=== PATIENT | female | born 1935 | race Caucasian/White ===

== ENCOUNTER 2017-05-31 16:17 | Outpatient (CLI) | payer MEDICARE | END 2017-05-31 16:18 | disposition critical access hospital (66) | LOC: EMS 16:17 | PROVIDERS: ATTEND Surgery | DX: R46.4 Slowness and poor responsiveness (principal); M54.9 Dorsalgia, unspecified | CPT/HCPCS: A0425; A0429 ==

== ENCOUNTER 2017-05-31 16:46 | Emergency (ER) | payer MEDICARE ==
--- NOTE | 2017-05-31 18:43 | ED Physician Documentation ---
PD HPI ALTERED MENTAL STATUS - Stated complaint Stated Complaint: ALOC - Chief complaint Chief Complaint: Neuro - History obtained from History obtained from: Patient, Family, EMS - History of Present Illness Timing - onset: Today (Patient was very drowsy and hard to rouse while lying in bed. No noted change in med dosing and daughter gives her her meds at home. She was not easily rousable and EMS called. Patient says she awoke when Medics were there and she has been alert/awake enroute and here. She denies headache, chest pain. Has had ongoing pain in mid back to left side, with feeling it hurting more today. She has been on same pain meds for a week or so. She has had the back pain for about a month, with apparent atraumatic T6 compression fracture. She has been having less mobility due to it and had a fall 1 week ago with skin tears of arms due to difficulty getting to bathroom. 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 No: Fever, Headache, Dyspnea, NVD , Urinary sx, Focal weakness Contributing factors: Anticoagulated, Recent injury (about a month ago, with back pain). No: Recent med change, Recent illness Basline status: Alert and oriented X 3 Recently seen: Emergency Dept Review of Systems Constitutional: denies: Fever, Chills Nose: denies: Rhinorrhea / runny nose, Congestion Throat: denies: Sore throat Cardiac: denies: Chest pain / pressure, Palpitations Respiratory: reports: Dyspnea, Wheezing. denies: Cough GI: reports: Nausea. denies: Abdominal Pain, Vomiting, Diarrhea Neurologic: denies: Focal weakness, Numbness Endocrine: reports: Weight loss. denies: Easy bruising / bleeding Immunocompromised: denies: Immunocompromised PD PAST MEDICAL HISTORY - Past Medical History Cardiovascular: Congestive heart failure, Hypertension, Atrial fibrillation Respiratory: Asthma, Shortness of breath Neuro: None Endocrine/Autoimmune: HyPOthyroidism GI: None EXCEL SPECIALIST: None : None HEENT: None Psych: None Musculoskeletal: Osteoarthritis Derm: None - Past Surgical History Past Surgical History: Yes General: Bowel surgery, Colonoscopy /EXCEL SPECIALIST: Dilation and currettage HEENT: Cataracts - Present Medications Home Medications: Ambulatory Orders Medication Instructions Recorded Confirmed Levothyroxine [Synthroid] 50 mcg PO MOTUTHFRSA 02/12/13 05/24/17 traZODone [Desyrel] 100 mg PO QPM 07/14/14 05/24/17 Fluticasone [Flonase] 1 spray BRAYDON BID 03/05/15 05/24/17 Potassium Chloride 20 meq PO DAILY 03/05/15 05/24/17 Albuterol Sulfate [Proair Hfa] 2 puffs INH Q4H PRN 01/04/16 05/24/17 Atorvastatin Calcium 60 mg PO QPM 01/04/16 05/24/17 Azelastine HCl [Astelin] 1 - 2 sprays NS BID PRN 01/04/16 05/24/17 Furosemide [Lasix] 40 mg PO DAILY 01/04/16 05/24/17 Mometasone/Formoterol [Dulera 200 2 puffs INH BID 01/04/16 05/24/17 Mcg/5 Mcg Inhaler] oxyCODONE [Roxicodone] 5 mg PO DAILY PRN 01/04/16 05/24/17 Omeprazole 20 mg BID 03/24/16 05/24/17 Warfarin [Coumadin] 5 mg QPM 03/24/16 05/24/17 Cetirizine [ZyrTEC] 10 mg PO ONCE 11/17/16 05/24/17 Glucosamine/D3/Boswellia [place] 1 each PO DAILY 11/17/16 05/24/17 [Osteo Bi-Flex Tablet] Vitamin B Complex 1 each PO DAILY 11/17/16 05/24/17 Metoprolol Tartrate 5 mg PO DAILY 03/13/17 05/24/17 Oxycodone HCl 10 mg PO Q4H PRN #20 tablet 05/02/17 05/24/17 Fentanyl [Fentanyl 12mcg patch] 2 each TD 05/31/17 oxyCODONE ER [OxyCONTIN] 20 mg PO Q12H 05/31/17 05/31/17 - Allergies Allergies/Adverse Reactions: Allergies Allergy/AdvReac Type Severity Reaction Status Date / Time acetaminophen [From Percocet] Allergy Unknown Verified 05/31/17 16:52 aloe vera [From Vagisil] Allergy Unknown Verified 05/31/17 16:52 amitriptyline Allergy Unknown Verified 05/31/17 16:52 amoxicillin trihydrate * Allergy Respiratory Verified 05/31/17 16:52 [From Augmentin] benzocaine [From Vagisil] Allergy Unknown Verified 05/31/17 16:52 ipratropium Allergy Unknown Verified 05/31/17 16:52 medroxyprogesterone acetate * Allergy Unknown Verified 05/31/17 16:52 [From Provera] meperidine HCl * Allergy Unknown Verified 05/31/17 16:52 [From Demerol] mineral oil * [From Vagisil] Allergy Unknown Verified 05/31/17 16:52 morphine Allergy Emesis Verified 05/31/17 16:52 nortriptyline Allergy Unknown Verified 05/31/17 16:52 oxycodone HCl * Allergy Unknown Verified 05/31/17 16:52 [From Percocet] Penicillins Allergy Unknown Verified 05/31/17 16:52 potassium clavulanate * Allergy Respiratory Verified 05/31/17 16:52 [From Augmentin] promethazine HCl * Allergy Unknown Verified 05/31/17 16:52 [From Phenergan] resorcinol [From Vagisil] Allergy Unknown Verified 05/31/17 16:52 starch [From Vagisil] Allergy Unknown Verified 05/31/17 16:52 Sulfa (Sulfonamide Allergy Nausea Verified 05/31/17 16:52 Antibiotics) sulfamethoxazole Allergy Unknown Verified 05/31/17 16:52 [From Bactrim] tiotropium bromide * Allergy Unknown Verified 05/31/17 16:52 [From Spiriva with HandiHaler] trimethoprim [From Bactrim] Allergy Unknown Verified 05/31/17 16:52 vitamin E acetate * Allergy Unknown Verified 05/31/17 16:52 [From Vagisil] vitamins A and D * Allergy Unknown Verified 05/31/17 16:52 [From Vagisil] erythromycin base AdvReac Unknown Verified 05/31/17 16:52 BIND Allergy Intermediate Emesis Uncoded 05/31/17 16:52 - Social History Does the pt smoke?: No Smoking Status: Never smoker Does the pt drink ETOH?: No Does the pt have substance abuse?: No - Immunizations Immunizations are current?: Yes Immunizations: TDAP current <10years - POLST Patient has POLST: No PD ED PE NORMAL - Vitals Vital signs reviewed: Yes - General General: Alert and oriented X 3, Well developed/nourished, Other (appears in pain with movement of the upper back. ) - HEENT HEENT: Atraumatic, Pharynx benign. No: Moist mucous membranes - Neck Neck: Supple, no meningeal sign, No adenopathy - Cardiac Cardiac: RRR, No murmur - Respiratory Respiratory: Clear bilaterally, Other - Abdomen Abdomen: Normal bowel sounds, Soft, Non tender, Non distended - Female Female : Deferred - Rectal Rectal: Deferred - Back Back: No CVA TTP, Other (mid thoracic area and to left along lateral rib area. No noted rash in the area. ) - Derm Derm: Normal color, No rash - Extremities Extremities: Normal ROM s pain, No edema, No calf tenderness / cord - Neuro Neuro: Alert and oriented X 3, No motor deficit, No sensory deficit, Normal speech Results - Vitals Vitals: Vital Signs - 24 hr 05/31/17 05/31/17 05/31/17 16:47 19:50 19:52 Temperature 36.6 C Heart Rate 64 69 69 Respiratory 16 18 18 Rate Blood Pressure 133/64 H 145/60 H O2 Saturation 99 100 05/31/17 23:09 Temperature Heart Rate 60 Respiratory Rate Blood Pressure O2 Saturation Oxygen O2 Source Room air - Labs Labs: Laboratory Tests 05/31/17 05/31/17 05/31/17 19:50 20:50 22:37 WBC 8.1 RBC 3.71 L Hgb 12.2 Hct 35.6 L MCV 96.1 MCH 33.1 H MCHC 34.4 RDW 12.9 Plt Count 372 MPV 9.1 Neut # 4.8 Lymph # 2.1 [place] # 0.8 Eos # 0.3 Baso # 0.1 Absolute Nucleated RBC 0.01 Nucleated RBC % 0.1 Whole Blood INR 3.5 H Sodium 139 Potassium 3.5 Chloride 108 Carbon Dioxide 21 Anion Gap 10.0 BUN 10 Creatinine 0.8 Estimated GFR (MDRD) 69 L Glucose 70 Calcium 7.8 L Magnesium 1.8 Total Bilirubin 0.9 AST 28 ALT 15 Alkaline Phosphatase 90 Total Protein 5.6 L Albumin 2.9 L Globulin 2.7 Albumin/Globulin Ratio 1.1 Lipase 14 L Urine Color Urine Clarity Urine pH Ur Specific [place] Urine Protein Urine Glucose (UA) Urine Ketones Urine Occult Blood Urine Nitrite Urine Bilirubin Urine Urobilinogen Ur Leukocyte Esterase Ur Microscopic Review Urine Culture Comments 05/31/17 23:00 WBC RBC Hgb Hct MCV MCH MCHC RDW Plt Count MPV Neut # Lymph # [place] # Eos # Baso # Absolute Nucleated RBC Nucleated RBC % Whole Blood INR Sodium Potassium Chloride Carbon Dioxide Anion Gap BUN Creatinine Estimated GFR (MDRD) Glucose Calcium Magnesium Total Bilirubin AST ALT Alkaline Phosphatase Total Protein Albumin Globulin Albumin/Globulin Ratio Lipase Urine Color YELLOW Urine Clarity CLEAR Urine pH 6.0 Ur Specific [place] 1.020 Urine Protein NEGATIVE Urine Glucose (UA) NEGATIVE Urine Ketones 40 H Urine Occult Blood NEGATIVE Urine Nitrite NEGATIVE Urine Bilirubin NEGATIVE Urine Urobilinogen 0.2 (NORMAL) Ur Leukocyte Esterase NEGATIVE Ur Microscopic Review NOT INDICATED Urine Culture Comments NOT INDICATED - Rads (name of study) chest Radiology: Prelim report reviewed, EMP read contemporaneously (no pneumonia, infiltrates, atelectasis seen. ) PD MEDICAL DECISION MAKING - ED course Complexity details: reviewed old records, reviewed results, re-evaluated patient (pain less with IV meds. Discussed with patient/family member the process of getting to SNF and will need SW in AM. No apparent infections or other process to need admission. Will have her overnight in ED and have SW input in AM. Will order current outpt pain meds for her here. ), considered differential, d/w patient, d/w family Departure - Departure Condition: Stable Record reviewed to determine appropriate education?: Yes
[2017-05-31] MEDS ORDERED: HYDROmorphone 1 MG/ML CARPUJECT IVP STA (19:23)
[2017-05-31] MEDS ORDERED: ALBUTEROL NEB 2.5 MG/3 ML INH STA (19:24)
[2017-05-31] MEDS ORDERED: SODIUM CHLORIDE 0.9% 1,000 ML IV ONE (19:25)
[2017-05-31] MEDS ORDERED: HYDROmorphone 1 MG/ML SYRINGE ONE (19:35)
[2017-05-31] MEDS ORDERED: ALBUTEROL NEB 2.5 MG/3 ML INH ONE (20:01)
[2017-05-31 20:11] LABS: BASOPHILS # (AUTO) 0.1 10^3/uL (0.0-0.1); BASOPHILS % (AUTO) 0.9 %; EOSINOPHILS # (AUTO) 0.3 10^3/uL (0.0-0.7); EOSINOPHILS % (AUTO) 3.2 %; HCT - HEMATOCRIT 35.6 % (37.0-47.0); HGB - HEMOGLOBIN 12.2 g/dL (12.0-16.0); LYMPHOCYTES # (AUTO) 2.1 10^3/uL (1.5-3.5); LYMPHOCYTES % (AUTO) 26.4 %; MEAN CORPUSCULAR HEMOGLOBIN 33.1 pg (27.0-31.0); MEAN CORPUSCULAR HGB CONC 34.4 g/dL (32.0-36.0); MEAN CORPUSCULAR VOLUME 96.1 fL (81.0-99.0); MEAN PLATELET VOLUME 9.1 fL (7.9-10.8); MONOCYTES # (AUTO) 0.8 10^3/uL (0.0-1.0); MONOCYTES % (AUTO) 9.6 %; NEUTROPHILS # (AUTO) 4.8 10^3/uL (1.5-6.6); NEUTROPHILS % (AUTO) 59.9 %; NUCLEATED RED BLOOD CELLS AUTO 0.1 /100WBC; RED BLOOD COUNT 3.71 10^6/uL (4.20-5.40); RED CELL DISTRIBUTION WIDTH 12.9 % (12.0-15.0); UNCORRECTED WHITE BLOOD COUNT 8.1 x10^3/uL; WHITE BLOOD COUNT 8.1 x10^3/uL (4.8-10.8)
--- NOTE | 2017-05-31 20:29 | XRAY Preliminary Report ---
Exam: XR CHEST 1 VIEW IMPRESSION: No acute focal airspace disease. [facility] SITE ID: [id number]
--- NOTE | 2017-05-31 20:32 | XRAY Report ---
EXAM: CHEST RADIOGRAPHY EXAM DATE: 05/31/2017 08:04 PM. CLINICAL HISTORY: Left chest pain. COMPARISON: 01/31/2016 chest x-ray. TECHNIQUE: 1 view. FINDINGS: Lungs/Pleura: Prominent interstitial opacities with no confluent lung consolidation. No pleural effus ion or pneumothorax. Mediastinum: Normal heart size. Slightly tortuous, atherosclerotic aorta. Other: None. IMPRESSION: No acute focal airspace disease. [facility] Referring Provider Line: [phone] SITE ID: [id number]
[2017-05-31 22:53] LABS: ALBUMIN/GLOBULIN RATIO 1.1 (1.0-2.2); BILIRUBIN,TOTAL 0.9 mg/dL (0.2-1.0); CALCIUM 7.8 mg/dL (8.5-10.3); CREATININE 0.8 mg/dL (0.4-1.0); MAGNESIUM 1.8 mg/dL (1.7-2.8); POTASSIUM 3.5 mmol/L (3.5-5.0); TOTAL PROTEIN 5.6 g/dL (6.7-8.2)
[2017-05-31] MEDS ORDERED: fentaNYL 25 MCG PATCH TOP STA (23:10)
[2017-05-31 23:27] LABS: BILIRUBIN,URINE NEGATIVE (NEGATIVE)
[2017-05-31 23:30] LABS: UA CHARGE (STRIP ONLY) YES; UR CULTURE IF IND NOT INDICATED
[2017-05-31] MEDS ORDERED: OXYCODONE PO SCH (23:45)
[2017-06-01] MEDS ORDERED: traZODone 50 MG TABLET PO STA (01:16)
[2017-06-01] MEDS: oxyCODONE 5 MG TABLET PO PRN ×2 (02:45→06:59)
[2017-06-01] MEDS ORDERED: oxyCODONE 5 MG TABLET ONE ×2 (02:49→07:01)
[2017-06-01 09:33] VITALS: BP 144/82
== END 2017-06-01 12:28 | disposition home or self-care (01) ==
LOC: EDUNIT# → ED 16:46
DX: M54.6 Pain in thoracic spine (principal); M48.54XD Collapsed vertebra, not elsewhere classified, thoracic region, subsequent encounter for fracture with routine healing; R41.82 Altered mental status, unspecified; T50.905A Adverse effect of unspecified drugs, medicaments and biological substances, initial encounter; S51.812A Laceration without foreign body of left forearm, initial encounter; S51.811A Laceration without foreign body of right forearm, initial encounter; W19.XXXA Unspecified fall, initial encounter; I11.0 Hypertensive heart disease with heart failure; I50.9 Heart failure, unspecified; I48.91 Unspecified atrial fibrillation; Z79.01 Long term (current) use of anticoagulants; E03.9 Hypothyroidism, unspecified
CPT/HCPCS: 36415; 71010; 80053; 81001; 81003; 83690; 83735; 85025; 85610; 87086; 94640; 99283; 99284

== ENCOUNTER 2017-06-08 13:16 | Outpatient (CLI) | payer MEDICARE | END 2017-06-08 13:17 | disposition short-term general hospital (02) | LOC: EMS 13:16 | PROVIDERS: ATTEND Surgery | DX: R53.1 Weakness (principal); R41.82 Altered mental status, unspecified; R11.2 Nausea with vomiting, unspecified | CPT/HCPCS: A0425; A0427 ==

== ENCOUNTER 2017-07-08 08:00 | Outpatient (CLI) | payer MEDICARE ==
[2017-07-08 18:13] LABS: BASOPHILS % (AUTO) 0.1 %; HCT - HEMATOCRIT 31.7 % (37.0-47.0); HGB - HEMOGLOBIN 10.6 g/dL (12.0-16.0); LYMPHOCYTES # (AUTO) 0.6 10^3/uL (1.5-3.5); LYMPHOCYTES % (AUTO) 5.9 %; MEAN CORPUSCULAR HEMOGLOBIN 33.8 pg (27.0-31.0); MEAN CORPUSCULAR HGB CONC 33.5 g/dL (32.0-36.0); MEAN CORPUSCULAR VOLUME 100.9 fL (81.0-99.0); MEAN PLATELET VOLUME 9.9 fL (7.9-10.8); MONOCYTES # (AUTO) 0.4 10^3/uL (0.0-1.0); MONOCYTES % (AUTO) 4.3 %; NEUTROPHILS # (AUTO) 8.5 10^3/uL (1.5-6.6); NEUTROPHILS % (AUTO) 89.7 %; RED BLOOD COUNT 3.14 10^6/uL (4.20-5.40); RED CELL DISTRIBUTION WIDTH 16.9 % (12.0-15.0); UNCORRECTED WHITE BLOOD COUNT 9.5 x10^3/uL; WHITE BLOOD COUNT 9.5 x10^3/uL (4.8-10.8)
== END 2017-07-08 08:01 | disposition home or self-care (01) ==
LOC: LAB.R 08:00
DX: D64.9 Anemia, unspecified (principal)
CPT/HCPCS: 85025